=== PATIENT | female | born 1970 | race Caucasian/White ===

== ENCOUNTER 2019-06-18 09:48 | Emergency (ER) | payer SELFPAY ==
[~2019-06-18] VITALS: Ht 160 cm; Wt 72.9 kg
[2019-06-18 10:42] LABS: WHITE BLOOD COUNT 4.7 10^3/uL (4.3-11.0)
[2019-06-18 10:43] LABS: BASOPHILS % (AUTO) 0 % (0-10); EOSINOPHILS % (AUTO) 1 % (0-10); HEMATOCRIT 30 % (35-52); HEMOGLOBIN 9.2 G/DL (11.5-16.0); LYMPHOCYTES % (AUTO) 32 % (12-44); MEAN CORPUSCULAR HEMOGLOBIN 25 PG (25-34); MEAN CORPUSCULAR HGB CONC 31 G/DL (32-36); MEAN CORPUSCULAR VOLUME 82 FL (80-99); MEAN PLATELET VOLUME 11.5 FL (7.4-10.4); MONOCYTES % (AUTO) 7 % (0-12); PLATELET COUNT 282 10^3/uL (130-400); RED CELL DISTRIBUTION WIDTH 14.6 % (10.0-14.5)
[2019-06-18 10:44] LABS: LYMPHOCYTES # (AUTO) 1.5 X 10^3 (1.0-4.0); MONOCYTES # (AUTO) 0.3 X 10^3 (0.0-1.0); NEUTROPHILS # (AUTO) 2.8 X 10^3 (1.8-7.8); NEUTROPHILS % (AUTO) 60 % (42-75)
[2019-06-18 10:58] LABS: ALANINE AMINOTRANSFERASE 8 U/L (0-55); ALKALINE PHOSPHATASE 46 U/L (40-136); BILIRUBIN,TOTAL 0.4 MG/DL (0.1-1.0); BUN/CREATININE RATIO 15; CALCIUM 9.2 MG/DL (8.5-10.1); CARBON DIOXIDE 25 MMOL/L (21-32); CHLORIDE 103 MMOL/L (98-107); CREATININE SERUM 0.74 MG/DL (0.60-1.30); GFR ESTIMATED > 60; GLUCOSE 94 MG/DL (70-105); SODIUM 138 MMOL/L (135-145)
[2019-06-18 10:59] LABS: ALBUMIN 4.2 GM/DL (3.2-4.5)
--- NOTE | 2019-06-18 11:32 | ED GU-Female ---
General Chief Complaint: [employer] Stated Complaint: VAGINAL BLEEDING Nursing Triage Note: Started having vaginal bleeding 9 days ago. Has been seen at the [facility] clinic and started on medication to slow the bleeding down. Was sent here today from clinic due to hemoglobin of 9.0, which was 9.8 yesterday. Is still passing clots and changing her pad about every 3 hours. Nursing Sepsis Screen: No Definite Risk Source: patient Exam Limitations: no limitations History of Present Illness Date Seen by Provider: Jun 18, 2019 Time Seen by Provider: 10:45 Initial Comments Here with report of dysfunctional uterine bleeding. Was seen in the clinic yesterday and had hemoglobin of 9.8. Came back today for recheck after IM injection of estrogen yesterday. Repeat hemoglobin was 9.0 on fingerstick in the clinic. Due to that, she was sent to the emergency department for further evaluation apparently. She does follow with Dr. Rasheed. My understanding from nursing report was that there was some conversation between his nurses and the nurses in the clinic and the discussion was to send her to the emergency department for evaluation. Patient states that she has had bleeding that has been quite heavy over the last several days or longer. She had ultrasound done yesterday which showed thickened endometrium but no other masses or concerns. She did have an enlarged left ovary. Patient states that the bleeding actually got heavier overnight but has lightened up now. She states she is actually doing better now. No significant pain or cramping currently. Timing/Duration: week, getting worse, changing over time Severity/Quality: mild, cramping Location: suprapubic, vaginal Radiation: none Activities at Onset: none Prior Genitourinary Problems: none Modifying Factors: Improves With Resting Associated Symptoms: No abdominal pain, No dysuria, No fever/chills, No lower back pain, No nausea/vomiting; other (feels weak) Allergies and Home Medications Allergies Coded Allergies: No Known Drug Allergies (Unverified , 06/18/19) Patient Home Medication List Home Medication List Reviewed: Yes Review of Systems Review of Systems Constitutional: see HPI; No chills, No fever; weakness EENTM: no symptoms reported Respiratory: no symptoms reported Cardiovascular: no symptoms reported Gastrointestinal: see HPI Genitourinary: denies burning, denies pain : No Musculoskeletal: no symptoms reported Skin: no symptoms reported Psychiatric/Neurological: See HPI; Denies Headache; Weakness Past Btpqeid-Omdwbr-Gvrxop Hx Past Med/Social Hx: Reviewed Nursing Past Med/Soc Hx Patient Social History Alcohol Use: Denies Use Recreational Drug Use: No Smoking Status: Never a Smoker 2nd Hand Smoke Exposure: No Recent Foreign Travel: No Contact w/Someone Who Travel: No Recent Infectious Disease Expo: No Recent Hopitalizations: No Physical Abuse: No Sexual Abuse: No Mistreated: No Fear: No Seasonal Allergies Seasonal Allergies: No Past Medical History Surgeries: Yes (tubal ; hiatal hernia) Respiratory: No Cardiac: No Neurological: No Genitourinary: No Gastrointestinal: No Musculoskeletal: No Endocrine: No HEENT: No Cancer: No Psychosocial: No Integumentary: No Blood Disorders: No Adverse Reaction/Blood Tranf: No Family Medical History Reviewed Nursing Family Hx Physical Exam Vital Signs Vital Signs - First Documented 06/18/19 09:56 Temp 37.1 Pulse 71 Resp 16 B/P (MAP) 112/65 (81) Pulse Ox 100 Capillary Refill : Less Than 3 Seconds Height, Weight, BMI Height: '" Weight: lbs. oz. kg; 28.00 BMI Method: General Appearance: WD/WN, no apparent distress Cardiovascular: regular rate, rhythm, no murmur Respiratory: lungs clear, normal breath sounds Gastrointestinal: non tender, soft Extremities: non-tender, normal inspection Neurologic/Psychiatric: alert, oriented x 3 Skin: normal color, warm/dry Progress/Results/Core Measures Suspected Sepsis Recent Fever Within 48 Hours: No Infection Criteria Present: None New/Unexplained Altered Menta: No Sepsis Screen: No Definite Risk SIRS Temperature: Pulse: 71 Respiratory Rate: 16 Laboratory Tests 06/18/19 10:26: White Blood Count 4.7 Blood Pressure 112 /65 Mean: 81 Laboratory Tests 06/18/19 10:26: Creatinine 0.74, Platelet Count 282, Total Bilirubin 0.4 Results/Orders Lab Results Laboratory Tests Test 06/18/19 10:26 Range/Units White Blood Count 4.7 4.3-11.0 10^3/uL Red Blood Count 3.63 L 4.35-5.85 10^6/uL Hemoglobin 9.2 L 11.5-16.0 G/DL Hematocrit 30 L 35-52 % Mean Corpuscular Volume 82 80-99 FL Mean Corpuscular Hemoglobin 25 25-34 PG Mean Corpuscular Hemoglobin Concent 31 L 32-36 G/DL Red Cell Distribution Width 14.6 H 10.0-14.5 % Platelet Count 282 130-400 10^3/uL Mean Platelet Volume 11.5 H 7.4-10.4 FL Neutrophils (%) (Auto) 60 42-75 % Lymphocytes (%) (Auto) 32 12-44 % Monocytes (%) (Auto) 7 0-12 % Eosinophils (%) (Auto) 1 0-10 % Basophils (%) (Auto) 0 0-10 % Neutrophils # (Auto) 2.8 1.8-7.8 X 10^3 Lymphocytes # (Auto) 1.5 1.0-4.0 X 10^3 Monocytes # (Auto) 0.3 0.0-1.0 X 10^3 Eosinophils # (Auto) 0.0 0.0-0.3 10^3/uL Basophils # (Auto) 0.0 0.0-0.1 10^3/uL Sodium Level 138 135-145 MMOL/L Potassium Level 4.0 3.6-5.0 MMOL/L Chloride Level 103 98-107 MMOL/L Carbon Dioxide Level 25 21-32 MMOL/L Anion Gap 10 5-14 MMOL/L Blood Urea Nitrogen 11 7-18 MG/DL Creatinine 0.74 0.60-1.30 MG/DL Estimat Glomerular Filtration Rate > 60 BUN/Creatinine Ratio 15 Glucose Level 94 70-105 MG/DL Calcium Level 9.2 8.5-10.1 MG/DL Corrected Calcium 9.0 8.5-10.1 MG/DL Total Bilirubin 0.4 0.1-1.0 MG/DL Aspartate Amino Transf (AST/SGOT) 14 5-34 U/L Alanine Aminotransferase (ALT/SGPT) 8 0-55 U/L Alkaline Phosphatase 46 40-136 U/L Total Protein 7.0 6.4-8.2 GM/DL Albumin 4.2 3.2-4.5 GM/DL My Orders Orders - KEM TAYLOR MD Cbc With Automated Diff (06/18/19 10:06) Ed Iv/Invasive Line Start (06/18/19 10:06) Comprehensive Metabolic Panel (06/18/19 10:07) Estrogens Conj Injection (Premarin Injec (06/18/19 12:15) Vital Signs/I&O 06/18/19 09:56 Temp 37.1 Pulse 71 Resp 16 B/P (MAP) 112/65 (81) Pulse Ox 100 Capillary Refill : Less Than 3 Seconds Blood Pressure Mean: 81 POS Progress Note : Progress Note Seen and evaluated. I did discuss the case with Dr. Rdz who has text did with Dr. Rasheed. We will recheck CBC using lab for verification. Monitor patient. 1200: Repeat CBC shows hemoglobin 9.2. I did discuss the case with Dr. Rasheed. . He is recommending 25 mg of estrogen administration which we will give IV. He can see her in the office that she is still doing okay. Patient is still bleeding although it does appear to be at last amount than when it was at its max. At this point she is able to walk back and forth to the bathroom without significant dizziness or weakness. He will see her at his office at 1 PM. I did discuss this with the patient and family and they agree. Discharged with return precautions. Patient family verbalized understanding instructions and agreement with plan. Departure Impression Primary Impression: Dysfunctional uterine bleeding Disposition: 01 HOME, SELF-CARE Condition: Stable Departure-Patient Inst. Decision time for Depature: 12:17 Referrals: ZOILA RDZ MD (PCP/Family) Primary Care Physician SHELL RASHEED DO Patient Instructions: IRREGULAR VAGINAL BLEEDING Add. Discharge Instructions: All discharge instructions reviewed with patient and/or family. Voiced understanding. Follow-up with Dr. Rasheed at 1 PM at his office. Return for significant increase in bleeding, weakness, breathing problems, vomiting or other concerns as needed. Copy Copies To 1: SHELL RASHEED TIMOTHY D MD Jun 18, 2019 11:32 POS
[2019-06-18] MEDS ORDERED: ESTROGENS CONJ IV 25 MG/5 ML (PREMARIN) VIAL IV ONE (12:15)
[2019-06-18 12:40] VITALS: BP 91/63
[2019-06-18] MEDS ORDERED: ESTROGENS CONJ IV 25 MG/5 ML (PREMARIN) VIAL IM ONE (12:45)
[2019-06-18] MEDS ORDERED: WATER (STERILE) FOR INJECTION 10 ML ONE (12:53)
--- OUTSIDE RECORDS SUMMARY | 2019-07-13 09:58 | XMS REPORT | Continuity of Care Document ---
Demographics Preferred Language Unknown Marital Status Unknown Restoration Affiliation Unknown Race Unknown Ethnic Group Unknown Author Organization Unknown Address Unknown Phone Unavailable Allergies Active Description Code Type Severity Reaction Onset Reported/Identified Relationship to Patient Clinical Status Yes No Known Drug Allergies [id number] Drug Allergy Unknown N/A 06/18/2019 Medications There is no data. Problems Date Dx Coded Attending Type Code Diagnosis Diagnosed By 06/18/2019 CLAUDIA JACKSON, KEM Langford Ot N93.9 ABNORMAL UTERINE AND VAGINAL BLEEDING, U Procedures There is no data. Results Test Result Range Comprehensive metabolic panel - 06/18/19 10:26 Serum or plasma sodium measurement (moles/volume) 138 mmol/L 135-145 Serum or plasma potassium measurement (moles/volume) 4.0 mmol/L 3.6-5.0 Serum or plasma chloride measurement (moles/volume) 103 mmol/L 98-107 Carbon dioxide 25 mmol/L 21-32 Serum or plasma anion gap determination (moles/volume) 10 mmol/L 5-14 Serum or plasma urea nitrogen measurement (mass/volume ) 11 mg/dL 7-18 Serum or plasma creatinine measurement (mass/volume) 0.74 mg/dL 0.60-1.30 Serum or plasma urea nitrogen/creatinine mass ratio 15 NRG Serum or plasma creatinine measurement w ith calculation of estimated glomerular filtration rate > NRG Serum or plasma glucose measurement (mass/volume) 94 mg/dL 70-105 Serum or plasma calcium measurement (mass/volume) 9.2 mg/dL 8.5-10.1 Serum or plasma total bilirubin measurement (mass/volu me) 0.4 mg/dL 0.1-1.0 Serum or plasma alkaline phosphatase gentry surement (enzymatic activity/volume) 46 U/L 40-136 Serum or plasma aspartate aminotransfera se measurement (enzymatic activity/volume) 14 U/L 5-34 Serum or plasma alanine aminotransferase measurement (enzymatic activity/volume) 8 U/L 0-55 Serum or plasma protein measurement (mass/volume) 7.0 g/dL 6.4-8.2 Serum or plasma albumin measurement (mass/volume) 4.2 g/dL 3.2-4.5 CALCIUM CORRECTED 9.0 mg/dL 8.5-10.1 Complete blood count (CBC) with automate d white blood cell (WBC) differential - 06/18/19 10:26 Blood leukocytes automated count (number/volume) 4.7 10*3/uL 4.3-11.0 Blood erythrocytes automated count (number/volume) 3.63 10*6/uL 4.35-5.85 Venous blood hemoglobin measurement (mass/volume) 9.2 g/dL 11.5-16.0 Blood hematocrit (volume fraction) 30 % 35-52 Automated erythrocyte mean corpuscular volume 82 [ foz_us] 80-99 Automated erythrocyte mean corpuscular h emoglobin (mass per erythrocyte) 25 pg 25-34 Automated erythrocyte mean corpuscular h emoglobin concentration measurement (mass/volume) 31 g/dL 32-36 Automated erythrocyte distribution width ratio 14. 6 % 10.0- 14.5 Automated blood platelet count (count/volume) 282 10*3/uL 130-400 Automated blood platelet mean volume measurement 11.5 [foz_us] 7.4-10.4 Automated blood neutrophils/100 leukocytes 60 % 42-75 Automated blood lymphocytes/100 leukocytes 32 % 12-44 Blood monocytes/100 leukocytes 7 % 0-12 Automated blood eosinophils/100 leukocytes 1 % 0-10 Automated blood basophils/100 leukocytes 0 % 0-10 Blood neutrophils automated count (number/volume) 2.8 10*3 1.8-7.8 Blood lymphocytes automated count (number/volume) 1.5 10*3 1.0-4.0 Blood monocytes automated count (number/volume) 0. 3 10*3 0.0-1.0 Automated eosinophil count 0.0 10*3/uL 0 .0-0.3 Automated blood basophil count (count/volume) 0.0 10*3/uL 0.0-0.1 PATHOLOGY REPORT (TISSUE PAHOLOGY) - 10/02 17:17 CLINICAL INFORMATION NR PATHOLOGIST [facility] TISSUE, SPECIMEN A - 06/18/19 17:17 A SOURCE NRG A GROSS DESCRIPTION NRG A DIAGNOSIS NRG A COMMENT NR Encounters ACCT No. Visit Date/Time Discharge Status Pt. Type Provider Facility Loc./Unit Complaint [id number] 06/18/2019 13:00:00 Document Registration [id number] 06/18/2019 09:50:00 019 12:40:00 DIS Emergency CLAUDIA JACKSON, KEM Langford [facility] ER FS VAGINAL BLEELIZABETH G
== END 2019-06-18 12:40 | disposition home or self-care (01) ==
LOC: ER FS 09:50
DX: N93.9 Abnormal uterine and vaginal bleeding, unspecified (principal)
CPT/HCPCS: 36415; 80053; 85025; 96372

== ENCOUNTER 2019-10-08 05:43 | Outpatient (CLI) | payer OTHER ==
[~2019-10-08] VITALS: Ht 165 cm; Wt 76.2 kg
== END 2019-10-08 13:34 | disposition home or self-care (01) ==
LOC: PREOP 05:43
PROVIDERS: ATTEND Obstetrics & Gynecology
DX: Z01.818 Encounter for other preprocedural examination (principal)

== ENCOUNTER → 2021-11-09 | Outpatient (CLI) | payer SELFPAY ==
--- NOTE | 2021-11-09 10:30 | Diagnostic Imaging Report ---
EXAMINATION: MRI RT UPPER EXT JOINT W/O. TECHNIQUE: Multiplanar, multisequence MR imaging of the right shoulder was performed without contrast. COMPARISON: None available. INDICATION: Right shoulder pain after overuse injury. FINDINGS: Rotator cuff: The supraspinatus, infraspinatus, teres minor, and subscapularis are all intact. No rotator cuff muscle edema or atrophy. Glenoid labrum: No chondrolabral separation or paralabral cyst. Long head of biceps: Long head of biceps is normally positioned within the bicipital groove. The intracapsular segment is intact. Bones and cartilage: Glenohumeral alignment is normal. No glenohumeral chondromalacia. 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 Soft tissues: No glenohumeral joint effusion. No MRI findings to suggest adhesive capsulitis. There is a T2 hyperintense collection in the subdeltoid bursa with surrounding non-masslike edema extending both cranially and caudally. There is some hypointensity in the inferior aspect of this collection which may represent mineralization. The adjacent greater tuberosity of the humerus has some bone marrow edema as well. IMPRESSION: 1. Subdeltoid bursitis with a mixed intensity collection surrounded by inflammatory stranding. There is a possibility of mineralization within this bursa and correlation with radiographs is advised for confirmation. If mineralization/calcification is seen on radiographs of the shoulder, these features are highly likely due to calcific bursitis. The active phase of calcific bursitis would also account for the surrounding inflammatory stranding within the soft tissues as well as the adjacent bone marrow edema. If no mineralization is seen in this region on radiographs, then a followup MRI of the shoulder without and with IV contrast is suggested but additional MR imaging should only be performed after negative shoulder radiographs. 2. No rotator cuff tear. Dictated by: Dictated on workstation # [id number]
== END ==
LOC: RAD 08:00
PROVIDERS: ATTEND Nurse Practitioner Family
DX: M75.51 Bursitis of right shoulder (principal)
CPT/HCPCS: 73221